=== PATIENT | female | born 1975 | race Caucasian/White ===

== ENCOUNTER 2024-10-04 15:16 | Emergency (ER) | payer MEDICAID ==
[~2024-10-04] VITALS: Ht 167.6 cm; Wt 55.0 kg
[2024-10-04] MEDS ORDERED: PRED10TA23 PO (15:54)
[2024-10-04] MEDS: triamcinolone acetonide 40mg/ml inj IM ONE (16:39)
[2024-10-04 16:51] VITALS: BP 121/67; PULSE 85; RESP 17; TEMP 98; O2SAT 99
== END 2024-10-04 16:55 | disposition home or self-care (01) ==
LOC: ER 15:17
DX: L50.9 Urticaria, unspecified (principal); Z91.041 Radiographic dye allergy status; Z88.0 Allergy status to penicillin; Z79.52 Long term (current) use of systemic steroids
CPT/HCPCS: 96372; 99283; J3301